=== PATIENT | male | born 1945 | race Caucasian/White ===

== ENCOUNTER → 2016-04-07 | Outpatient (CLI) | payer OTHER, MEDICARE ==
[2016-04-07 18:28] LABS: ALT/SGPT 20 U/L (12-78); BLOOD UREA NITROGEN 16 mg/dl (7-18); BUN/CREATININE RATIO 16.1 (10-20); CALCIUM 8.5 mg/dl (8.5-10.1); CARBON DIOXIDE 28 mmol/L (21-32); CHLORIDE 105 mmol/L (98-107); CREATININE 0.97 mg/dl (0.60-1.40); GLUCOSE 102 mg/dl (70-99); POTASSIUM 3.7 mmol/L (3.5-5.1); SODIUM 142 mmol/L (136-145)
[2016-04-07 18:30] LABS: ALB/GLOB RATIO 1.3 (0.9-2); ALKALINE PHOSPHATASE 53 U/L (45-117); AST/SGOT 13 U/L (15-37)
--- NOTE | 2016-05-06 12:17 | CODING QUERY MEDICAL NECESSITY ---
CQSUPPORTING DIAGNOSIS NEEDED A supporting diagnosis is required for the test/procedure performed on this patient in order for us to be reimbursed by the patient's insurance. Please provide a supporting diagnosis for the following test/procedure listed below next to the test name along with your signature. *If there is no additional diagnosis for this patient that would support the following test/procedure please document that below next to the test/procedure. Test(s)/Procedure(s) that require a supporting diagnosis: DOS 04/07/16 VITAMIN B12 TEST Provider Signature: Date: Thank you Karyna Lance [facility] Information Management Once completed, please kindly fax back to [phone] For questions please call [phone]
== END | disposition home or self-care (01) ==
LOC: C.LAB1850 16:56
PROVIDERS: ATTEND Internal Medicine Gastroenterology
DX: R63.0 Anorexia (principal); R63.4 Abnormal weight loss; E46 Unspecified protein-calorie malnutrition

== ENCOUNTER → 2016-04-09 | Outpatient (CLI) | payer OTHER, MEDICARE ==
[~2016-04-09] MED LIST: OPTIRAY 320 IV PRN
--- NOTE | 2016-04-09 13:33 | DIAGNOSTIC IMAGING REPORT ---
CT SCAN OF THE ABDOMEN AND PELVIS WITH IV CONTRAST CLINICAL HISTORY: Anorexia. COMPARISON STUDY: No priors. TECHNIQUE: Following the IV administration of 120 cc of Optiray 320, CT scan of the abdomen and pelvis is performed from the lung bases to the proximal femora. Images are reviewed in the axial, sagittal, and coronal planes. IV contrast was administered without complication. Automated dose control exposure was utilized. CT DOSE: 265.39 mGy.cm FINDINGS: Lung bases: The heart is normal in size and without pericardial effusion. There are coronary artery calcifications. The lung bases are clear. Liver: The contrast-enhanced liver is normal in size, contour, and attenuation. There is no intrahepatic biliary ductal dilatation. The hepatic veins and portal veins are patent. Calcified granulomas are present in the left hepatic lobe. There are 2 indeterminant low-attenuation lesions in the left hepatic lobe measuring up to 1.4 cm. These are seen on images #67 and #76. Gallbladder: Unremarkable. Spleen: Normal in size and attenuation. Pancreas: Unremarkable. Adrenal glands: Unremarkable. Kidneys: The contrast enhanced kidneys demonstrate mild cortical atrophy and are without hydronephrosis. The kidneys enhance symmetrically. There is a 2.2 x 2.2 x 1.8 cm lesion arising exophytically from the medial lower pole of the right kidney seen on axial image #182. This demonstrates peripheral calcification as well as foci of internal enhancement. A subcentimeter cortical hypodensity is noted in the interpolar left kidney. This likely represents a cyst but is too small for definitive characterization. Abdominal vasculature: The abdominal aorta is normal in course and caliber noting moderate to advanced atherosclerotic calcification. Bowel: The small bowel and colon are normal in course and caliber. There is advanced sigmoid diverticulosis without CT evidence of acute diverticulitis. Colonic fecal retention is observed. The appendix is well-visualized and normal. Peritoneum: There is no intraperitoneal free air or abdominal ascites. There is a small fat-containing umbilical hernia. Lymphadenopathy: None. Pelvic viscera: The prostate gland is markedly enlarged and heterogeneous, measuring 6.3 cm in transverse diameter. The bladder is decompressed and grossly unremarkable. Skeletal structures: The skeletal structures are osteopenic. No lytic or blastic lesions are seen. There are bilateral pars defects at L5. No anterolisthesis is seen at L5-S1. IMPRESSION: 1. There is a peripherally calcified low-attenuation lesion with foci of internal enhancement arising exophytically from the medial lower pole of the left kidney. Although pathologically indeterminant, this should be considered renal cell carcinoma until proven otherwise. Follow-up with urology is recommended. 2. The prostate gland is enlarged and heterogeneous. Correlation with serum PSA levels is recommended. 3. Advanced sigmoid diverticulosis without CT evidence of acute diverticulitis. 4. There are 2 low-attenuation lesions in the left lobe of the liver measuring up to 1.4 cm. Although incompletely characterized these are of low suspicion an likely represent cysts or small hemangiomas. Consider follow-up liver ultrasound for further assessment. 5. Additional findings as detailed above. Electronically signed by: Shane Bernard M.D. 04/09/2016 1:32 PM Dictated Date/Time: 04/09/2016 1:23 PM
== END | disposition home or self-care (01) ==
LOC: C.CTS 10:12
PROVIDERS: ATTEND Internal Medicine Gastroenterology
DX: R63.0 Anorexia (principal); N28.9 Disorder of kidney and ureter, unspecified; N40.0 Benign prostatic hyperplasia without lower urinary tract symptoms; K57.30 Diverticulosis of large intestine without perforation or abscess without bleeding; K76.9 Liver disease, unspecified

== ENCOUNTER → 2016-05-02 | Outpatient (CLI) | payer OTHER, MEDICARE ==
[~2016-05-02] MED LIST changes: +GADAVIST IV PRN; -OPTIRAY 320 IV PRN
--- NOTE | 2016-05-02 17:18 | DIAGNOSTIC IMAGING REPORT ---
MRI OF THE ABDOMEN COMBO CLINICAL HISTORY: Renal mass. COMPARISON STUDY: CT study 04/09/2016. TECHNIQUE: MRI of the abdomen is performed transverse T1 and T2-weighted sequences in the axial and coronal planes. Contrast enhanced sequences were acquired following the IV administration of gadolinium enhancement. FINDINGS: Lower chest: No pleural effusion is identified. The heart is normal in size. Liver: 2 small cysts anterior aspect left hepatic lobe. Otherwise uniform signal characteristics throughout. Gallbladder: Unremarkable. Spleen: Normal in size and signal intensity. Pancreas: Unremarkable. Adrenal glands: Unremarkable. Kidneys: Exophytic nodule immediately medial to the lower pole left kidney. This measures 2.0 x 1.9 x 1.8 cm. It shows peripheral postcontrast enhancement as well as serpiginous internal postcontrast enhancement. Small parapelvic cysts of the kidneys bilaterally. No evidence for hydronephrosis. Bowel: Visualized portions of the small bowel and colon show no evidence of obstruction. Peritoneum: There is no abdominal ascites. Lymphadenopathy: None. Skeletal structures: Visualized skeletal structures times are normal marrow signal intensity. IMPRESSION: 1. Abnormal exophytic nodule projecting from the medial aspect lower pole left kidney. 2. Dimensions are at maximum 2.0 cm. 3. Neoplastic process is the diagnosis of exclusion. 4. 2 very small left hepatic lobe cyst. 5. Study is otherwise negative Electronically signed by: Josh Madrigal M.D. 05/02/2016 5:16 PM Dictated Date/Time: 05/02/2016 5:10 PM
== END | disposition home or self-care (01) ==
LOC: C.MRI 14:14
PROVIDERS: ATTEND Urology
DX: N28.89 Other specified disorders of kidney and ureter (principal); N20.0 Calculus of kidney; K76.89 Other specified diseases of liver

== ENCOUNTER → 2016-07-03 | Outpatient (CLI) | payer OTHER, MEDICARE ==
[2016-07-03 14:00] LABS: THYROID STIMULATING HORMONE 0.122 uIu/ml (0.300-4.500)
== END | disposition home or self-care (01) ==
LOC: C.LAB1850 12:32
PROVIDERS: ATTEND Internal Medicine Endocrinology, Diabetes & Metabolism
DX: E89.0 Postprocedural hypothyroidism (principal)

== ENCOUNTER → 2016-07-03 | Outpatient (CLI) | payer OTHER, MEDICARE | END | disposition home or self-care (01) | LOC: C.FOODA 12:58 | PROVIDERS: ATTEND Family Medicine | DX: R63.4 Abnormal weight loss (principal); R63.0 Anorexia; E89.0 Postprocedural hypothyroidism ==

== ENCOUNTER → 2016-09-09 | Outpatient (CLI) | payer OTHER, MEDICARE ==
[2016-09-09 13:47] LABS: THYROID STIMULATING HORMONE 0.366 uIu/ml (0.300-4.500)
== END | disposition home or self-care (01) ==
LOC: C.LABBC 12:11
PROVIDERS: ATTEND Internal Medicine Endocrinology, Diabetes & Metabolism
DX: C73 Malignant neoplasm of thyroid gland (principal); E89.0 Postprocedural hypothyroidism

== ENCOUNTER → 2016-09-12 | Outpatient (CLI) | payer OTHER, MEDICARE ==
--- NOTE | 2016-09-12 12:15 | DIAGNOSTIC IMAGING REPORT ---
ABDOMINAL WALL ULTRASOUND CLINICAL HISTORY: Incisional drainage. COMPARISON STUDY: CT scan dated 04/09/2016 FINDINGS: There is a small complex cutaneous nodule identified within the incision to the left of midline. This measures 7 x 5 x 7 mm. The lesion is hypoechoic with internal echoes. The lesion extends to the skin surface. The lesion likely represents a small postsurgical fluid collection/abscess. Clinical follow-up is advocated. IMPRESSION: 7 x 5 x 7 mm complex hypoechoic nodule located beneath the patient's incision to the left of midline. The lesion extends to the skin surface. The lesion likely represents a small postsurgical fluid collection/abscess. Clinical follow-up is advocated Electronically signed by: Mulugeta Brooks M.D. 09/12/2016 12:14 PM Dictated Date/Time: 09/12/2016 12:10 PM
== END | disposition home or self-care (01) ==
LOC: C.ULTRBC 11:23
PROVIDERS: ATTEND Nurse Practitioner Adult Health
DX: C64.9 Malignant neoplasm of unspecified kidney, except renal pelvis (principal)

== ENCOUNTER → 2016-10-06 | Outpatient (CLI) | payer OTHER, MEDICARE ==
--- NOTE | 2016-10-06 13:59 | DIAGNOSTIC IMAGING REPORT ---
PET/CT SKULL-THIGH CLINICAL HISTORY: 70 years-old Male with KIDNEY CANCER. COMPARISON: Ultrasound of the abdomen 09/12/2016, MR abdomen 05/02/2016, CT abdomen and pelvis 04/09/2016 TECHNIQUE: The patient was injected with 11.33 mCi of F-18 fluorodeoxyglucose (FDG) and an emission scan was performed from the skull vertex to the toes. Noncontrast CT was performed for attenuation correction and anatomic localization. The blood glucose level was 82 mg/dl. FINDINGS: HEAD AND NECK: There is a physiologic distribution of activity, with no hypermetabolic foci. CHEST: There is a physiologic distribution of activity, with no hypermetabolic mediastinal, hilar or pulmonary foci. A subcarinal lymph node measuring 1.1 x 0.7 cm demonstrates uptake slightly above that of blood pole SCV max of 1.8 seen on image 92 of the axial series, likely reactive. ABDOMEN AND PELVIS: There is a physiologic distribution of activity within the liver, spleen, adrenal glands, gastrointestinal and urinary tracts. No hypermetabolic renal lesions are identified. Mildly increased radiotracer uptake is seen within the central prostate with SUV max of 2.1. No lesions are seen on CT. MUSCULOSKELETAL SYSTEM AND EXTREMITIES: There is a physiologic distribution of activity within the bone marrow. Mildly increased radiotracer uptake about the right shoulder and right upper arm is likely physiologic or inflammatory. ADDITIONAL CT FINDINGS: Calcifications of the right hepatic lobe are noted. Minimal layering gallstones seen within the gallbladder lumen. Previously noted complex exophytic lesion of the left kidney is no longer present. Surgical suture material is now seen within this distribution. There is atherosclerosis of the aorta. Prostate is enlarged. Colonic diverticulosis without diverticulitis is noted. Calcifications are seen within the upper scrotum. Low attenuating lesions are seen within the left hepatic lobe measuring up to 9 mm. The suggests cysts. IMPRESSION: 1. Postsurgical changes of left kidney with the previously described exophytic complex partially calcified and partially enhancing lesion no longer present. No hypermetabolic renal foci are identified. 2. No evidence of pathologic adenopathy or bony metastasis. 3. Mildly hypermetabolic nonenlarged subcarinal lymph node is likely reactive. 4. Prostamegaly with mildly increased radiotracer uptake is a nonspecific finding. Correlate with PSA level. 5. Cholelithiasis and colonic diverticulosis are incidentally noted. The above report was generated using voice recognition software. It may contain grammatical, syntax or spelling errors. Electronically signed by: Crescencio Ho M.D. 10/06/2016 1:58 PM Dictated Date/Time: 10/06/2016 1:46 PM
== END | disposition home or self-care (01) ==
LOC: C.PET 08:12
PROVIDERS: ATTEND Internal Medicine Hematology & Oncology
DX: C64.2 Malignant neoplasm of left kidney, except renal pelvis (principal)

== ENCOUNTER → 2016-10-17 | Outpatient (CLI) | payer OTHER, MEDICARE ==
[~2016-10-17] MED LIST changes: -GADAVIST IV PRN; +SINCALIDE INJ 1.3 MCG in SODIUM CHLORIDE 0.9% 100ML 100 ML IV SCH
--- NOTE | 2016-10-17 14:16 | DIAGNOSTIC IMAGING REPORT ---
HEPATOBILIARY EF IMAGING HISTORY: Pain. Nausea. ANOREXIA, NAUSEA COMPARISON: None. TECHNIQUE: Immediately following the intravenous administration of 5.8 mCi Tc-99m Choletec, dynamic anterior abdominal imaging pre/post 1.0 mcg of Kinevac was performed. FINDINGS: Uniform hepatic tracer accumulation is shown. Prompt intrahepatic biliary excretion is seen. The gallbladder, common bile duct, and small bowel are all visualized by 30 minutes. This appearance represents the normal sequence of biliary excretion. The gallbladder ejection fraction following administration of Kinevac was 88 % (normal >35%). IMPRESSION: 1. No evidence for cystic duct obstruction. 2. Gallbladder ejection fraction calculated to be 88 %. The above report was generated using voice recognition software. It may contain grammatical, syntax or spelling errors. Electronically signed by: Josh Madrigal M.D. 10/17/2016 2:15 PM Dictated Date/Time: 10/17/2016 2:13 PM
== END | disposition home or self-care (01) ==
LOC: C.NUCL 09:58
PROVIDERS: ATTEND Internal Medicine Gastroenterology
DX: R63.0 Anorexia (principal)

== ENCOUNTER → 2016-10-20 | Outpatient (CLI) | payer OTHER, MEDICARE ==
[~2016-10-20] MED LIST changes: +GADAVIST IV PRN; -SINCALIDE INJ 1.3 MCG in SODIUM CHLORIDE 0.9% 100ML 100 ML IV SCH
--- NOTE | 2016-10-20 11:24 | DIAGNOSTIC IMAGING REPORT ---
ABDOMEN COMBO CLINICAL HISTORY: 70 years-old Male presenting with history of renal cell carcinoma, partial nephrectomy of the left kidney in June 19, 2016. TECHNIQUE: Multisequence, multiplanar MR imaging of the abdomen was performed before and after the administration of intravenous contrast. IV contrast: 6 mL of Gadavist. COMPARISON: MR from 05/02/2016. FINDINGS: Localizer images: Unremarkable. Lung bases: Lung bases clear. No pericardial or pleural effusion. Liver: Normal morphology. 2 lobular well-defined T2 hyperintense lesions in the left hepatic lobe consistent with hepatic cysts or hamartomas. Patent hepatic vasculature. Conventional hepatic arterial anatomy. Biliary: No intrahepatic or extrahepatic biliary ductal dilatation. Gallbladder contains gallstones. Pancreas: Normal. Spleen: Small T2 hyperintense focus within the pancreatic body measuring approximately 5 to 6 mm, likely a small mucinous cyst or side branch intraductal papillary mucinous neoplasm. T2 hypointense focus in the anterior aspect of the spleen may indicate calcification. Adrenal glands: Normal. Kidneys and ureters: Postsurgical changes along the anterior aspect of the left psoas and anterior aspect of the interpolar region of the left kidney with numerous foci of susceptibility artifact. The majority of the left renal parenchyma is intact. Few parapelvic cysts noted on the left as well as a 8 mm T2 hyperintense, T1 hyperintense lesion along the anterior aspect of the interpolar region without demonstrable enhancement on subtracted images, most likely hemorrhagic or proteinaceous cyst. 2 right renal veins may be present, one more diminutive inserting along the posterior aspect of the IVC. Single left renal vein. Single renal arteries bilaterally. No hydronephrosis. Gastrointestinal tract: Normal. No bowel obstruction. Peritoneal cavity: No free fluid or intraperitoneal gas. Vasculature: Aorta and IVC patent and normal in caliber. Lymph nodes: No enlarged lymph nodes in the abdomen. Abdominal wall: Normal. Musculoskeletal: Normal. IMPRESSION: 1. Postsurgical changes of the left kidney. No evidence of residual or recurrent disease. No lymphadenopathy or evidence of metastatic disease in abdomen. Electronically signed by: Roosevelt Dey M.D. 10/20/2016 11:23 AM Dictated Date/Time: 10/20/2016 11:13 AM
== END | disposition home or self-care (01) ==
LOC: C.MRIBC 10:03
PROVIDERS: ATTEND Urology
DX: C64.9 Malignant neoplasm of unspecified kidney, except renal pelvis (principal)

== ENCOUNTER → 2017-01-07 | Outpatient (CLI) | payer OTHER, MEDICARE ==
[2017-01-07 17:20] LABS: THYROID STIMULATING HORMONE 0.033 uIu/ml (0.300-4.500)
== END | disposition home or self-care (01) ==
LOC: C.LABBC 15:18
PROVIDERS: ATTEND Internal Medicine Endocrinology, Diabetes & Metabolism
DX: E89.0 Postprocedural hypothyroidism (principal)

== ENCOUNTER → 2017-04-15 | Outpatient (CLI) | payer OTHER, MEDICARE ==
[~2017-04-15] MED LIST changes: -GADAVIST IV PRN; +OPTIRAY 320 IV PRN
--- NOTE | 2017-04-15 12:46 | DIAGNOSTIC IMAGING REPORT ---
ABD/PELVIS COMBO HISTORY: [address] years-old Male CT follow-up study in a patient with history of prior renal cell carcinoma and partial left-sided nephrectomy COMPARISON: Abdominal MRI 10/20/2016, PET CT 10/06/2016, CT abdomen and pelvis 04/09/2016 TECHNIQUE: Multiple axial CT images of the abdomen and pelvis were obtained both with and without the use of 95 mL Optiray 320 IV contrast according to institutional renal mass protocol. A dose lowering technique was used consistent with the principals of DANNY. FINDINGS: 4 mm solid nodule of the medial basal segment right lower lobe is noted on image 46 series 10, unchanged. Lung bases otherwise appear clear. No pneumatosis or pneumoperitoneum identified. Imaged inferior cardiac chambers are unremarkable with coronary arterial disease. Scattered low attenuating lesions of the liver are again seen which appear unchanged, largest of which measures 1.3 cm within the left hepatic lobe suggesting hepatic cysts. Punctate calcifications of the right hepatic lobe are again noted. Layering increased attenuation is seen within the gallbladder lumen suggesting cholelithiasis or gallbladder sludge. Spleen, pancreas and adrenal glands are within normal limits. Minimal linear calcification is noted involving the medial aspect of the lower left kidney at the area of prior partial left-sided nephrectomy. There is no abnormal enhancement or focal mass within this region to suggest recurrent or residual disease. Low attenuating nonenhancing 9 mm lesion of the interpolar left kidney is again seen suggesting renal cyst. No renal calculi or obstructive uropathy. 10 mm renal sinus cyst is noted level of the interpolar left kidney. No focal filling defects identified within the collecting systems or imaged ureters. The urinary bladder demonstrates mild wall thickening. The prostate is enlarged. Moderate atherosclerosis of the aorta. No pathologic adenopathy identified. Small sliding-type hiatal hernia. No bowel obstruction or focal bowel wall thickening. Extensive sigmoid diverticulosis without CT evidence of acute diverticulitis. Appendix appears unremarkable. Soft tissues are within normal limits. Bones appear intact. No suspicious lytic or blastic lesions. Remote appearing bilateral pars defects at L5. IMPRESSION: 1. Postoperative changes from prior partial left-sided nephrectomy without evidence of recurrent or residual disease. 2. No pathologic adenopathy identified. 3. Mild layering increased attenuation of the gallbladder lumen suggests cholelithiasis and/or gallbladder sludge. No CT evidence of acute cholecystitis. 4. Colonic diverticulosis without diverticulitis. 5. Prostamegaly with urinary bladder wall thickening suggesting sequela of chronic bladder outlet obstruction. Correlate with urinalysis. 6. Additional findings as above. The above report was generated using voice recognition software. It may contain grammatical, syntax or spelling errors. Electronically signed by: Crescencio Ho M.D. 04/15/2017 12:45 PM Dictated Date/Time: 04/15/2017 12:30 PM
--- NOTE | 2017-04-15 12:51 | DIAGNOSTIC IMAGING REPORT ---
CT OF THE CHEST WITH IV CONTRAST CLINICAL HISTORY: Renal cell carcinoma. COMPARISON STUDY: PET/CT October 06, 2016. TECHNIQUE: Following IV administration of 95 mL of Optiray-320, helical axial images of the chest were obtained. Sagittal and coronal reconstructions were viewed as well as maximal intensity projections on an independent 3-D workstation. A dose lowering technique was utilized adhering to the principles of ALARA. CT DOSE: 1010.59 mGycm FINDINGS: No enlarged axillary, mediastinal or hilar lymph nodes are present. The size the heart is normal. There is no pericardial effusion. There is moderate to severe coronary artery calcification. The abdomen and pelvis will be reported separately. Central airways are patent. Note is made of a 6 mm circumscribed nodule within the superior segment of the right lower lobe shown on image 119 of 351. This is similar to PET/CT of October 06, 2016. A 4 mm right lower lobe nodule shown image [address] of April 09, 2016. These nodules are likely benign. Central airways are patent. There are no suspicious osseous lesions. There is no consolidation. IMPRESSION: 1. Two subcentimeter right lung nodules which measure up to 6 mm. These are indeterminate but likely benign. A follow-up chest CT in 6 months to ensure stability is recommended. 2. No thoracic lymphadenopathy. Electronically signed by: Max Norton M.D. 04/15/2017 12:50 PM Dictated Date/Time: 04/15/2017 12:39 PM
[2017-04-15 13:05] LABS: BASO % 0.2 %; BASO ABS # 0.01 K/uL (0-0.2); EOS % 4.1 %; EOS ABS # 0.18 K/uL (0-0.5); HEMATOCRIT 40.2 % (42-52); HEMOGLOBIN 14.2 g/dL (14.0-18.0); LYMPH % 37.5 %; LYMPH ABS # 1.65 K/uL (1.2-3.4); MEAN CELL VOLUME 93.7 fL (80-100); MEAN CORPUSCULAR HEMOGLOBIN 33.1 pg (25-34); MEAN CORPUSCULAR HGB CONC 35.3 g/dl (32-36); MONO ABS # 0.53 K/uL (0.11-0.59); NEUT % 46.2 %; NEUT ABS # 2.03 K/uL (1.4-6.5); PLATELET COUNT 149 K/uL (130-400); RED CELL DISTRIBUTION WIDTH CV 13.3 % (11.5-14.5); RED CELL DISTRIBUTION WIDTH SD 45.7 fL (36.4-46.3)
[2017-04-15 13:19] LABS: ALBUMIN 3.4 gm/dl (3.4-5.0); ALT/SGPT 19 U/L (12-78); BLOOD UREA NITROGEN 13 mg/dl (7-18); CALCIUM 8.3 mg/dl (8.5-10.1); CARBON DIOXIDE 27 mmol/L (21-32); CREATININE 0.84 mg/dl (0.60-1.40); GLUCOSE 92 mg/dl (70-99); POTASSIUM 3.9 mmol/L (3.5-5.1); SODIUM 137 mmol/L (136-145)
[2017-04-15 13:22] LABS: ALKALINE PHOSPHATASE 42 U/L (45-117); AST/SGOT 13 U/L (15-37); TOTAL PROTEIN 6.4 gm/dl (6.4-8.2)
== END | disposition home or self-care (01) ==
LOC: C.CTS 10:46
PROVIDERS: ATTEND Urology
DX: C64.9 Malignant neoplasm of unspecified kidney, except renal pelvis (principal); N40.0 Benign prostatic hyperplasia without lower urinary tract symptoms; K57.90 Diverticulosis of intestine, part unspecified, without perforation or abscess without bleeding

== ENCOUNTER → 2017-04-20 | Outpatient (CLI) | payer OTHER, MEDICARE | END | disposition home or self-care (01) | LOC: C.LABBC 10:11 | PROVIDERS: ATTEND Family Medicine | DX: E78.5 Hyperlipidemia, unspecified (principal) ==

== ENCOUNTER → 2017-04-29 | Outpatient (CLI) | payer OTHER, MEDICARE | END | disposition home or self-care (01) | LOC: C.LAB1850 13:17 | PROVIDERS: ATTEND Internal Medicine Endocrinology, Diabetes & Metabolism | DX: C73 Malignant neoplasm of thyroid gland (principal); E89.0 Postprocedural hypothyroidism ==

== ENCOUNTER → 2017-06-30 | Outpatient (CLI) | payer OTHER, MEDICARE ==
[2017-06-30 16:55] LABS: BASO % 0.2 %; BASO ABS # 0.01 K/uL (0-0.2); EOS % 2.5 %; EOS ABS # 0.15 K/uL (0-0.5); HEMATOCRIT 44.8 % (42-52); HEMOGLOBIN 15.4 g/dL (14.0-18.0); IG# 0.01 K/uL (0.00-0.02); LYMPH % 33.4 %; LYMPH ABS # 1.99 K/uL (1.2-3.4); MEAN CELL VOLUME 96.1 fL (80-100); MEAN CORPUSCULAR HGB CONC 34.4 g/dl (32-36); MEAN PLATELET VOLUME 12.6 fL (7.4-10.4); MONO % 8.2 %; MONO ABS # 0.49 K/uL (0.11-0.59); NEUT % 55.5 %; PLATELET COUNT 184 K/uL (130-400); RED CELL DISTRIBUTION WIDTH CV 13.7 % (11.5-14.5); RED CELL DISTRIBUTION WIDTH SD 47.2 fL (36.4-46.3); WHITE BLOOD COUNT 5.95 K/uL (4.8-10.8)
[2017-06-30 17:06] LABS: ALBUMIN 3.9 gm/dl (3.4-5.0); AST/SGOT 15 U/L (15-37); BLOOD UREA NITROGEN 14 mg/dl (7-18); CALCIUM 8.8 mg/dl (8.5-10.1); CARBON DIOXIDE 29 mmol/L (21-32); CREATININE 0.93 mg/dl (0.60-1.40); GLUCOSE 110 mg/dl (70-99); POTASSIUM 4.2 mmol/L (3.5-5.1); SODIUM 139 mmol/L (136-145)
[2017-06-30 17:09] LABS: ALKALINE PHOSPHATASE 55 U/L (45-117); ALT/SGPT 26 U/L (12-78); TOTAL PROTEIN 7.2 gm/dl (6.4-8.2)
== END | disposition home or self-care (01) ==
LOC: C.LABBC 12:27
PROVIDERS: ATTEND Internal Medicine Hematology & Oncology
DX: E89.0 Postprocedural hypothyroidism (principal); Z85.850 Personal history of malignant neoplasm of thyroid

== ENCOUNTER → 2017-09-22 | Outpatient (CLI) | payer OTHER, MEDICARE ==
--- NOTE | 2017-09-22 13:21 | DIAGNOSTIC IMAGING REPORT ---
CT OF THE CHEST WITH IV CONTRAST CLINICAL HISTORY: Renal cell carcinoma. COMPARISON STUDY: Chest CT April 15, 2017 and PET/CT October 06, 2016. TECHNIQUE: Following IV administration of 119 mL of Optiray-320, helical axial images of the chest were obtained. Sagittal and coronal reconstructions were viewed as well as maximal intensity projections on an independent 3-D workstation. A dose lowering technique was utilized adhering to the principles of ALARA. FINDINGS: No enlarged axillary, mediastinal or hilar lymph nodes are present. The size of the heart is normal. There is no pericardial effusion. Central airways are patent. There is no consolidation to suggest pneumonia. Note is made of a new 4 mm left upper lobe nodule shown image 96 of 331. This was not present on exam of April 15, 2017. A few calcified granulomas are again noted. These are benign. A 6 mm right lower lobe nodule shown on image 105 and a 4 mm right lower lobe nodule shown on image 234 are unchanged. No consolidation to suggest pneumonia. The abdomen and pelvis will be reported separately. IMPRESSION: 1. New 4 mm left upper lobe pulmonary nodule since CT of April 15, 2017. A follow-up chest CT in 3 months is recommended as a tiny pulmonary metastasis cannot be excluded. 2. Remainder of pulmonary nodules unchanged since CT of April 15, 2017. 3. No thoracic lymphadenopathy. Electronically signed by: Max Norton M.D. 09/22/2017 1:19 PM Dictated Date/Time: 09/22/2017 12:37 PM
--- NOTE | 2017-09-22 13:27 | DIAGNOSTIC IMAGING REPORT ---
ABDOMEN AND PELVIS CT WITH AND WITHOUT IV CONTRAST, CT DOSE: 1003.11 mGy.cm HISTORY: Follow-up RENAL CELL CA TECHNIQUE: Multiaxial CT images of the abdomen and pelvis were performed both before and after the use of intravenous contrast to evaluate the kidneys. A dose lowering technique was utilized adhering to the principles of ALARA. COMPARISON STUDY: Abdomen and pelvis CT 04/15/2017. FINDINGS: No renal or ureteral calculi. No hydronephrosis. No enhancing renal masses. Status post prior partial left nephrectomy for resection of a renal cell carcinoma. Stable 9 mm hypodense lesion within the interpolar region of the left kidney. This is too small to characterize but favors a cyst. No hydronephrosis. Stable 4 mm nodule within the right lung base on image 46. Bilateral L5 spondylolysis. No suspicious lytic or blastic osseous lesions. No retroperitoneal lymphadenopathy. Stable hypodense lesions within the left hepatic lobe with the largest measuring 1.3 cm. These likely represent cysts. Cholelithiasis. Calcified granulomas within the right hepatic lobe. No splenic lesions. The adrenal glands and pancreas are unremarkable. The prostate remains heterogeneous and enlarged. Bladder is not well-distended. Mild bladder wall thickening may be due to underdistention. This remains unchanged. Colonic diverticulosis. No bowel wall thickening or obstruction. Normal appendix. No pelvic lymphadenopathy. IMPRESSION: 1. No significant change compared to the prior study. 2. No evidence for recurrent or metastatic disease. 3. Additional findings as described above. Electronically signed by: Igor Treviño M.D. 09/22/2017 1:26 PM Dictated Date/Time: 09/22/2017 1:13 PM
== END | disposition home or self-care (01) ==
LOC: C.CTS 11:30
PROVIDERS: ATTEND Urology
DX: C64.9 Malignant neoplasm of unspecified kidney, except renal pelvis (principal); R91.8 Other nonspecific abnormal finding of lung field

== ENCOUNTER 2020-10-04 10:35 | Observation (INO) ==
--- NOTE | 2020-09-20 15:27 | PAT Medication Instructions ---
Medication Instructions Date of Service September 20, 2020 Home Medications amlodipine 5 mg tablet 5 mg PO QPM valacyclovir 1 gram tablet (Valtrex) 1,000 mg PO UD atorvastatin 10 mg tablet 10 mg PO QPM trazodone 150 mg tablet 100 mg PO QPM fluticasone propionate 50 mcg/actuation nasal spray,suspension 1 spray INTRANASAL HS Tamsulosin 1 tab PO QPM azelastine 137 mcg (0.1 %) nasal spray aerosol 2 spray INTRANASAL DAILY PRN famotidine 10 mg tablet (Pepcid AC) 10 mg PO DAILY PRN finasteride 5 mg tablet 5 mg PO QPM levothyroxine 100 mcg tablet 100 mcg PO QAM Continue as directed valacyclovir 1 gram tablet (Valtrex) 1,000 mg PO UD DO NOT take the morning of surgery famotidine 10 mg tablet (Pepcid AC) 10 mg PO DAILY PRN Take morning of surgery With a small sip of water, OTHERWISE NOTHING TO EAT OR DRINK AFTER MIDNIGHT: azelastine 137 mcg (0.1 %) nasal spray aerosol 2 spray INTRANASAL DAILY PRN (if needed) levothyroxine 100 mcg tablet 100 mcg PO QAM Take evening before surgery amlodipine 5 mg tablet 5 mg PO QPM atorvastatin 10 mg tablet 10 mg PO QPM trazodone 150 mg tablet 100 mg PO QPM fluticasone propionate 50 mcg/actuation nasal spray,suspension 1 spray INTRANASAL HS Tamsulosin 1 tab PO QPM azelastine 137 mcg (0.1 %) nasal spray aerosol 2 spray INTRANASAL DAILY PRN (if needed) famotidine 10 mg tablet (Pepcid AC) 10 mg PO DAILY PRN (if needed) finasteride 5 mg tablet 5 mg PO QPM Other Notes If you have any questions please call us at [phone] or [phone] or [phone] or [phone]
--- NOTE | 2020-09-24 09:14 | Anesthesiology Consultation ---
Date of Service September 24, 2020 Assessment & Plan (1) Encounter for pre-operative examination: COVID screening: Per assessment on 09/24: Travel screen negative out of state travel (did travel to [place] 09/17-09/20: visited friends/family at hotel, "everyone" vaccinated, brought own sheets and follows COVID precaution guidelines). Patient vaccinated. Preop COVID testing > 5 days since return from [place]. No known COVID-19 positive contacts or current COVID-19 related sym ptoms. Surgeon arranging preop COVID testing. Awaiting results. Chart Review Chart Review: Acceptable Risk for Surgery and Patient seen in Pre Admission Testing Teaching & Discussion Pre-Anesthesia Teaching/Discussion Notes: Instructed NPO after midnight before surgery,except medications with 15 cc of water. Medication instructions provided according to the PAT guidelines. History Surgery Operation Date: 10/04/20 12:55 Proposed Procedures p Transurethral Resection Prostate - Nishant Bay, Height/Weight Height: 5 ft 7 in Weight: 66.8 kg Allergies Allergy/AdvReac Type Severity Reaction Status Date / Time No Known Drug Allergies Allergy Verified 09/20/20 13:23 Medications Home Medications Medication Instructions Recorded Confirmed Last Taken amlodipine 5 mg tablet 5 mg PO QPM 05/31/18 09/20/20 Unknown valacyclovir 1 gram tablet 1,000 mg PO UD tab 04/08/19 09/20/20 Unknown (Valtrex) atorvastatin 10 mg tablet 10 mg PO QPM tab 05/23/20 09/20/20 Unknown trazodone 150 mg tablet 100 mg PO QPM 05/23/20 09/20/20 Unknown fluticasone propionate 50 1 spray INTRANASAL HS 07/24/20 09/20/20 Unknown mcg/actuation nasal spray,suspension Tamsulosin 1 tab PO QPM 09/20/20 09/20/20 Unknown azelastine 137 mcg (0.1 %) nasal 2 spray INTRANASAL DAILY PRN 09/20/20 09/20/20 Unknown spray aerosol famotidine 10 mg tablet (Pepcid AC) 10 mg PO DAILY PRN 09/20/20 09/20/20 Unknown finasteride 5 mg tablet 5 mg PO QPM 09/20/20 09/20/20 Unknown levothyroxine 100 mcg tablet 100 mcg PO QAM 09/20/20 09/20/20 Unknown Past Medical History Medical History Arthritis BPH with obstruction/lower urinary tract symptoms Chronic GERD Diverticulitis Most recent flare approximately 3 years ago GERD (gastroesophageal reflux disease) Controlled Hx of papillary thyroid carcinoma s/p total thyroidectomy/radioactive iodine Hypercholesterolemia Hypertension Hypothyroidism Insomnia Kidney stones Mild obstructive sleep apnea CPAP (device recently recalled) Renal cell cancer s/p partial left nephrectomy Skin cancer Exercise / Class Metabolic Activity II 4-5 Yardwork/Stairs/Walk up hill (one FS (no CP, no SOB)) Past Family History Family History Father Hearing loss Heart disease Family history of diabetes mellitus Mother Hearing loss Family history of diabetes mellitus Sister Allergies Family history of diabetes mellitus Uncle Family history of diabetes mellitus Aunt Family history of diabetes mellitus Other No family history of adverse response to anesthesia No family history of bleeding disorder Past Surgical History Surgical History History of colonoscopy History of cystoscopy with stent for kidney stones History of esophagogastroduodenoscopy (EGD) History of left nephrectomy Partial History of lithotripsy History of repair of rotator cuff History of thyroidectomy History of transurethral resection of prostate Past Anesthesia History No Hx of Anesthesia Complications and No Family Hx of Anesthesia Complications History of PONV No Hx of PONV and No Hx of Motion Sickness Social History Smoking Status: Never smoker Do You Dip or Chew Tobacco: No Hx Alcohol Use: Yes Alcohol type: wine alcohol intake frequency: 0-2 drinks per day (2 glasses wine/night) Hx Substance Use: No Review of Systems Patient denies chest pain, shortness of breath, dyspnea on exertion, fever, chills, cough, wheezing, palpitations. Physical Exam Vital Signs VITALS BP 114/72 P 57 TEMP 98.7 SP02 96%RA RESP 16 PHYSICAL Full cervical extension range of motion. Full TMJ range of motion. TMD 3 finger breaths Mallampati Score 3 Dentition: missing molars, +implant, several caps Lungs: clear throughout to auscultation Cardiac: regular rate and rhythm, no murmurs noted Spine: normal Carotid arteries: negative bruit Extremities: no edema Lab Results Anesthesia Preop Results Results Anesthesia Widget: WBC 4.61 K/uL (4.8-10.8) L 09/24/20 Hgb 13.9 g/dL (14.0-18.0) L 09/24/20 Hct 40.5 % (42-52) L 09/24/20 Plt 172 K/uL (130-400) 09/24/20 Testing Laboratory Results 09/04/20 SODIUM 141 POTASSIUM 4.0 CHLORIDE 106 CO2 27 BUN 15 CREATININE 0.85 GLUCOSE 106 09/12/20 UA negative Electrocardiogram Date: 09/24/20 SB at 56bpm LAFB. No significant change compared to 05/31/18 per benefits counselor review. Chest X-Ray Date: 09/24/20 Findings: + NAD Stress Test Date: 08/06/18 Negative exercise stress echo/ECG for ischemia at 95 MPHR. No exercise-induced chest pain. 7 METS. No significant valvular disease. Other Testing Chest CT (02/22/20): No evidence of metastatic disease within the chest. Central airways are patent. There is no consolidation to suggest pneumonia. A 6 mm noncalcified solid pulmonary nodule within the right lower lobe on image 105 of [address] of June 13, 2017. This is benign given stability. A few smaller pulmonary nodules are also unchanged. There are no new pulmonary nodules. A few calcified pulmonary nodules are benign. There is no pneumothorax or pleural effusion. No suspicious lesions are identified within visualized portions of the bony thorax.
[~2020-10-04 10:35] MED LIST changes: +ACETAMINOPHEN 1000 MG/100 ML IV IV ONE; +CIPROFLOXACIN / D5W 400 MG/200 ML BAG IV SCH; +LR 15ML/HR IV SCH; -OPTIRAY 320 IV PRN
--- NOTE | 2020-10-04 10:41 | History & Physical Bridge Note ---
Date of Service October 04, 2020 History & Physical Bridge Note I have examined the patient, reviewed the History & Physical and in the interval since the performance of the History & Physical I have noted the following changes of clinical significance: no changes noted
[2020-10-04] MEDS ORDERED: ePHEDrine sulfate 50 MG/ML AMP IV PRN (12:26)
[2020-10-04] MEDS ORDERED: ATROPINE SULFATE 0.1 MG/ML 10ML SYR IV PRN (12:26)
[2020-10-04] MEDS ORDERED: ONDANSETRON INJ 2 MG/ML 2 ML VIAL IV PRN (12:26)
[2020-10-04] MEDS ORDERED: fentaNYL citrate 100 MCG/2 ML VIAL IV PRN (12:26)
[2020-10-04] MEDS ORDERED: fentaNYL citrate 100 MCG/2 ML VIAL ONE (13:33)
[2020-10-04] MEDS ORDERED: PHENAZOPYRIDINE HCL 200 MG TAB PO PRN (13:45)
[2020-10-04] MEDS ORDERED: BELLADONNA/OPIUM SUPP 60 MG SUPP PR PRN (13:45)
[2020-10-04] MEDS ORDERED: MoRPHine SULFATE 2 MG/ML CARP IV PRN (13:45)
--- NOTE | 2020-10-04 15:31 | Operative Report ---
PG Post Operative Report Pre & Post Diagnosis Operation Date: 10/04/20 12:25 Pre-Op Diagnosis: Incomplete Bladder Emptying Post-Op Diagnosis: Incomplete Bladder Emptying I identified the patient and participated in the time-out.: Yes Procedure Operation Date: 10/04/20 12:25 Actual Procedures p Transurethral Resection Prostate, Destruction and Extraction of Bladder Stone(Not Applicable) - Nishant Bay DO Surgeon Nishant Bay, II, DO Pediatric Care Coordinator None Estimated Blood Loss 10 Findings Consistent with Post-Op Diagnosis Large regrowth Prostate with obstruction. Multiple bladder stone. Specimens Prostate adenoma. Bladder stone Drains 24Fr 3-way Catheter Anesthesia Type General Complications none Disposition Disposition: Recovery Room Indications Patient with obstruction due to prostate enlargement and regrowth. Risks and benefits discussed at length. Description of Procedure Patient was consented and brought back to the operating room. Patient was placed under anesthesia in the supine position and moved to the dorsal lithotomy position. Patient was prepped and draped in the regular sterile fashion. A time out was completed. A 30degree Cystoscope was placed into the bladder and the entire bladder was examined. The UO's were identified as well as the bladder neck, trigone, dome, and the other important landmarks. The prostatic urethra and large lobes/adenoma was assessed and the veru and bladder neck identified and area/size was assessed. Patient had irregular regrowth of the prostate. Multiple small bladder stones were destroyed and irrigated and removed. The resection scope was placed and the fine bipolar loop was selected. Starting at the 5 and 7 o'clock positions, a channel was created from bladder neck to the veru. The lateral lobes of the prostate was then resected. A small amount of tissue at the distal prostate and anterior prostate was also resected. The Specimen was removed and sent for analysis. The resection bed and any bleeding areas were fulgurated/cauterized and the entire area inspected. All bleeding was controlled. The bladder was inspected a final time. The bladder was emptied and irrigated. All specimen and debris was removed. The scope was removed with the bladder partially full. A catheter was placed and balloon elevated. This was easily irrigated. The patient was cleaned, aroused from anesthesia, and transferred to the pacu in stable condition having tolerated the procedure well with no complications. I was present and participated in all aspects of the procedure. The patient will be monitored in the PACU until transferred. Plan to maintain catheter for approx 10 days. Continue with irrigation overnight and observation. I attest to the content of the Intraoperative Record and any orders documented therein. Any exceptions are noted below.
--- NOTE | 2020-10-04 16:18 | Anesthesiology Progress Note ---
Date of Service October 04, 2020 Anesthesia Post Procedure Vital Signs Vital Signs: Temp Pulse Pulse Resp BP BP Pulse Ox 10/04/20 16:05 53 L 14 126/68 96 10/04/20 15:55 36.6 C 56 L 14 136/72 97 10/04/20 15:45 56 L 14 134/69 99 10/04/20 15:35 59 L 13 123/68 100 10/04/20 15:27 36.3 C L 66 16 134/64 100 10/04/20 11:13 36.8 C 65 18 143/78 H 96 Pain Intensity Penis: Pain Intensity: 2 Transfer of Care Handoff Completed per policy Notes Mental Status: alert / awake / arousable and participated in evaluation Patient Amnestic to Procedure: Yes Nausea / Vomiting: adequately controlled Pain: adequately controlled Airway Patency, RR, SpO2: stable & adequate BP & HR: stable & adequate Hydration State: stable & adequate Anesthetic Complications: no major complications apparent and Pt Satisfied with anesthetic care
[2020-10-04] MEDS ORDERED: FAMOTIDINE 10 MG TABLET PO PRN (16:51)
[2020-10-04] MEDS: SODIUM CHLORIDE 0.9% 1000ML 1,000 ML IV SCH (17:10)
[2020-10-04 17:21] LABS: Basophils # (auto) 0.01 K/uL (0-0.2); Basophils % (auto) 0.2 %; Eosinophils # (auto) 0.11 K/uL (0-0.5); Eosinophils % (auto) 2.2 %; Hematocrit (blood only) 41.7 % (42-52); Hemoglobin 14.2 g/dL (14.0-18.0); Immature Granulocytes # (auto) 0.01 K/uL (0.00-0.02); Immature Granulocytes % (auto) 0.2 %; Lymphocytes # (auto) 1.38 K/uL (1.2-3.4); Lymphocytes % (auto) 27.8 %; Mean Corpuscular Hemoglobin 32.5 pg (25-34); Mean Corpuscular Hgb Conc 34.1 g/dL (32-36); Mean Corpuscular Volume 95.4 fL (80-100); Mean Platelet Volume 11.7 fL (7.4-10.4); Monocytes # (auto) 0.45 K/uL (0.11-0.59); Monocytes % (auto) 9.1 %; Neutrophils # (auto) 3.01 K/uL (1.4-6.5); Neutrophils % (auto) 60.5 %; Platelet Count 133 K/uL (130-400); RDW Coefficient of Variation 12.7 % (11.5-14.5); RDW Standard Deviation 44.3 fL (36.4-46.3); Red Blood Count 4.37 M/uL (4.7-6.1); White Blood Count 4.97 K/uL (4.8-10.8)
[2020-10-04 17:42] LABS: Albumin Level 3.4 gm/dl (3.4-5.0); BUN Creatinine Ratio 14.8 (10-20); Calcium 7.8 mg/dl (8.5-10.1); Creatinine Clr Calc Pharmacy 75.7 ml/min; Potassium 3.9 mmol/L (3.5-5.1)
[2020-10-04 17:45] LABS: Albumin Globulin Ratio 1.2 (0.9-2); Bilirubin,Total 0.8 mg/dl (0.2-1); Globulin 2.8 gm/dl (2.5-4.0); Total Protein 6.2 gm/dl (6.4-8.2)
[2020-10-04] MEDS: ceFAZolin 2000MG 2,000 MG/15 ML SYR IV SCH (18:39)
[2020-10-04] MEDS: oxyCODONE/ACETAMINOPHEN 5mg/325mg TAB PO PRN (20:03)
[2020-10-04] MEDS: DOCUSATE SODIUM 100 MG CAP PO SCH (20:03)
[2020-10-04] MEDS ORDERED: traZODone HCL 100 MG TAB PO SCH (21:00)
[2020-10-04] MEDS ORDERED: ATORVASTATIN 10 MG TAB PO SCH (21:00)
[2020-10-04] MEDS ORDERED: TAMSULOSIN HCL 0.4 MG CAP PO SCH (21:00)
[2020-10-04] MEDS ORDERED: amLODIPine BESYLATE 5 MG TAB PO SCH (21:00)
[2020-10-05] MEDS: ceFAZolin 2000MG 2,000 MG/15 ML SYR IV SCH ×2 (01:24→09:55)
[2020-10-05] MEDS: SODIUM CHLORIDE 0.9% 1000ML 1,000 ML IV SCH (04:53)
[2020-10-05] MEDS: oxyCODONE/ACETAMINOPHEN 5mg/325mg TAB PO PRN (04:53)
[2020-10-05] MEDS ORDERED: LEVOTHYROXINE SODIUM 100 MCG TABLET PO SCH (06:30)
--- NOTE | 2020-10-05 07:52 | Anesthesiology Progress Note ---
Date of Service October 05, 2020 Anesthesia Post Procedure Vital Signs Vital Signs: Temp Pulse Pulse Resp BP BP Pulse Ox 10/05/20 03:42 36.8 C 70 18 121/71 96 10/04/20 22:33 37 C 66 18 129/68 97 10/04/20 19:45 36.6 C 57 L 18 127/68 96 10/04/20 18:45 36.6 C 65 20 127/73 97 10/04/20 17:51 36.5 C 54 L 16 150/76 H 97 10/04/20 17:15 36.6 C 55 L 16 129/71 98 10/04/20 16:45 36.4 C L 56 L 16 129/71 98 10/04/20 16:05 53 L 14 126/68 96 10/04/20 15:55 36.6 C 56 L 14 136/72 97 10/04/20 15:45 56 L 14 134/69 99 10/04/20 15:35 59 L 13 123/68 100 10/04/20 15:27 36.3 C L 66 16 134/64 100 10/04/20 11:13 36.8 C 65 18 143/78 H 96 Pain Intensity Penis: Pain Intensity: 2 Notes Mental Status: alert / awake / arousable and participated in evaluation Patient Amnestic to Procedure: Yes Nausea / Vomiting: adequately controlled Pain: adequately controlled Airway Patency, RR, SpO2: stable & adequate BP & HR: stable & adequate Hydration State: stable & adequate Anesthetic Complications: no major complications apparent and Pt Satisfied with anesthetic care
--- NOTE | 2020-10-05 08:26 | Urology Progress Note ---
Date of Service October 05, 2020 Assessment & Plan (1) BPH with obstruction/lower urinary tract symptoms: Plan: - Pt POD#1 s/p TURP and bladder stone extraction with Dr. Bay - Doing well, progressing as expected - Afebrile, post op lab work reviewed - creatinine 0.80, WBC 4.97, Hgb 14.2 - Tolerating PO diet - Sullivan catheter intact, patent and draining clear yellow urine with CBI on slow - CBI clamped @0810 - will reassess later this AM - Maintain Sullivan catheter - Anticipate home with Sullivan catheter later today presuming urine appropriate and he continues to progress as expected - Expected clinical course reviewed, all questions answered - Will arrange outpatient follow-up with our service for voiding trial - Patient reassessed at 1015 - pt ambulated in hallway, urine appropriate, ready for discharge now - order placed Admission and Anticipated Discharge Date Admission Date: October 04, 2020 Subjective 74 yo M POD #1 s/p TURP and bladder stone extraction with Dr. Bay. Patient resting in bed on arrival, arouses easily to his name. No acute issues overnight, though he reports he did not sleep well. Reports intermittent pain from Sullivan catheter, but relieved with PO pain medication. No abdominal, suprapubic or flank pain. Sullivan catheter intact, patent, and draining clear yellow urine with CBI running on slow. CBI clamped at time of exam @0810. Tolerating PO diet, no nausea or vomiting, +flatus. No fever or chills. He feels ready for discharge today. Chart review: Afebrile, post op lab work reviewed (10/04) - creatinine 0.80, WBC 4.97 No additional concerns today. Review of Systems Constitutional: as per Subjective / HPI Gastrointestinal: as per Subjective / HPI Genitourinary: + as per Subjective / HPI Physical Exam Constitutional: well developed and well nourished; no acute distress and not ill appearing Neck: normal visual inspection Respiratory: normal respiratory effort and able to speak in complete sentences; no respiratory distress and no labored breathing Cardiovascular: Extremities: no pedal edema Gastrointestinal (Abdomen): Inspection/Auscultation: abdomen normal to inspection; abdomen not distended Percussion/Palpation: abdomen soft; abdomen nontender and no guarding Neurologic: moves all extremities and awake Psychiatric: Orientation: alert, oriented x 3 and cooperative Genitourinary: Sullivan catheter intact, patent and draining clear yellow urine with CBI running on slow CBI clamped at 0810 Results & Data ([facility]) Vital Signs (Past 12 Hours) Vital Signs Temp Pulse Resp BP BP Pulse Ox 10/05/20 08:00 36.8 C 63 18 102/57 L 95 10/05/20 03:42 36.8 C 70 18 121/71 96 10/04/20 22:33 37 C 66 18 129/68 97 PG Care Time/CCT Total # of Minutes Spent Total Time Spent with Patient: Total time spent is greater than 50% in coordination of care (as documented) at patient's floor/unit and/or counseling patient: Coding Level of Care Code 57662 Subseq Hosp Care Lvl 2 Diagnoses BPH with obstruction/lower urinary tract symptoms N40.1; N13.8
[2020-10-05] MEDS: DOCUSATE SODIUM 100 MG CAP PO SCH (09:55)
--- NOTE | 2020-10-07 08:53 | Discharge Summary ---
Date of Service October 07, 2020 Admission HPI Per Admitting Provider See H&P Admission Exam Per Admitting Provider See H&P Principal Diagnosis BPH with obstruction Discharge Exam General: Alert in no acute distress. HEENT: Normocephalic Atraumatic. Inspection normal. Psychologic: Normal affect. Skin: Pickwick and Dry. No rashes or visible lesions. Abdomen: Soft Non-distended. No rebound or guarding. Discharge Data Allergies Allergy/AdvReac Type Severity Reaction Status Date / Time No Known Drug Allergies Allergy Verified 10/04/20 11:01 Procedures Performed Operation Date: 10/04/20 12:25 Actual Procedures p Transurethral Resection Prostate, Extraction of Bladder Stone(Not Applicable) - Nishant Bay DO Hospital Course (1) BPH with obstruction/lower urinary tract symptoms: - Pt POD#1 s/p TURP and bladder stone extraction with Dr. Bay - Doing well, progressing as expected - Afebrile, post op lab work reviewed - creatinine 0.80, WBC 4.97, Hgb 14.2 - Tolerating PO diet - Sullivan catheter intact, patent and draining clear yellow urine with CBI on slow - CBI clamped @0810 - will reassess later this AM - Maintain Sullivan catheter - Anticipate home with Sullivan catheter later today presuming urine appropriate and he continues to progress as expected - Expected clinical course reviewed, all questions answered - Will arrange outpatient follow-up with our service for voiding trial - Patient reassessed at 1015 - pt ambulated in hallway, urine appropriate, ready for discharge now - order placed Total Time Total Time Spent Total Time Spent (In Minutes): 10 minutes Total Time Includes: Examination of the Patient, Discharge Planning, Medication Reconciliation and Communication With Other Providers Discharge Plan Discharge Items Patient Disposition: Home - Self-Care Reason For Visit: BLADDER OUTLET OBSTRUCTION Discharge Diagnosis: Same Activity: Resume your previous activity Lifting: No more than 50 pounds Bathing Comment: Okay to shower, no tub bath or soaking Sexual Activity: Wait until after follow-up appointment Exercise/Sports: Wait until after follow-up appointment Driving/Machine Use: No driving while taking prescription pain medication Non-emergency contact: Surgeon and Urologist Call non-emergency contact if: your pain is not controlled, you have a fever and your temperature is above 101 Follow-up/Referrals: Nishant Bay DO [Physician] - 10/15/20 9:00 am (You will have you catheter removed on 10/15/20. Dr Bay office will be phoning you to schedule you follow up appt as well.) Baltazar Johnston [Primary Care Provider] - 10/10/20 8:50 am (You will be seeing Dr. Rodriguez being that Dr. Johnston is booked through October 2020.) [facility],Nurse [FAKE FOR SCHEDULES] - 10/15/20 9:00 am Diet: Regular Addtl Attending Provider Instructions: Please take all medications as prescribed and keep all follow-ups as scheduled. Please call our office at [phone] with any questions, concerns or need to reschedule appointments for any reason. We are happy to assist you. Continue your previous antibiotic as directed. A prescription was sent to your pharmacy for 5 additional days of antibiotic to complete. Tips for your recovery at home: Dont be alarmed by brownish or reddish blood or clots in your urine. This is a result of the procedure. This may occur off and on for weeks to months after the procedure but should continue to improve. Drink plenty of fluids during the day (enough to keep your urine very light colored). This will help keep a healthy flow of urine. Do not lift >25 lbs until your followup Avoid constipation. Please use a stool softener (Colace) for the first two weeks after your procedure Be sure to finish the antibiotics as prescribed. If you go home with a catheter, please wash tubing where it enters your body twice daily with mild soap (Dove or Dial). Once your catheter is removed, expect some blood in your urine and some burning when you urinate. You should have an appointment to have this removed, if you do not please call our office to arrange. Call [facility] [place] [place] Urology at [phone] if you experience: Fever of 101F or higher If you have catheter, and you notice: o Bloody urine or drainage that is dark red or has large clots (Please remember a small amount of blood is normal) o No drainage from the catheter for more than 6 hours o The catheter comes out of your bladder Pain that is not controlled with medicines Pending Studies at Discharge: Yes Studies:: Pathology Stand-Alone Forms: [facility], Opioid Pain Management, Smoking Cessation Medications and DC Order Prescriptions: New oxycodone-acetaminophen [Percocet] 5-325 mg tablet 1 tab PO TID PRN (Reason: pain) Qty: 7 RF: 0 docusate sodium [Colace] 100 mg capsule 100 mg PO BID Qty: 60 RF: 0 cephalexin 500 mg capsule 500 mg PO BID 5 Days Qty: 10 RF: 0 Continued cephalexin 500 mg capsule 500 mg PO BID Qty: 10 RF: 0 valacyclovir [Valtrex] 1 gram tablet 1,000 mg PO DAILY PRN (Reason: Cold Sores) RF: 0 atorvastatin 10 mg tablet 10 mg PO QPM RF: 0 fluticasone propionate 50 mcg/actuation spray,suspension 1 spray intranasal HS RF: 0 trazodone 150 mg tablet 100 mg PO QPM RF: 0 amlodipine 5 mg tablet 5 mg PO QPM RF: 0 tamsulosin 0.4 mg Capsule 0.4 mg PO HS RF: 0 levothyroxine 100 mcg tablet 100 mcg PO QAM RF: 0 azelastine 137 mcg (0.1 %) aerosol,spray 2 spray intranasal DAILY PRN (Reason: Nasal Congestion) RF: 0 finasteride 5 mg tablet 5 mg PO QPM RF: 0 famotidine [Pepcid AC] 10 mg Tablet 10 mg PO DAILY PRN (Reason: Acid Reflux) RF: 0 Discharge Orders: Discharge Order (Routine); Ordered 10/05/20 Ordered By: Mariluz Harden/Other Patient Handouts: Discharge Instructions Caring for ... Admission Data Admit Date/Time: 10/04/20 13:45 Attending Provider: Nishant Bay Admit Provider: Nishant Bay Primary Care Provider: Baltazar Johnston Other Interventions: Discharge Summary Assessment (RN) Last Done: 10/05/20 11:13 Coding Level of Care Code D/C DAY MANAGEMENT <30 MINS Diagnoses BPH with obstruction/lower urinary tract symptoms N40.1; N13.8
== END 2020-10-05 12:44 | disposition home or self-care (01) ==
LOC: ASU 10:35 → 3W 10:35